=== PATIENT | male | born 1990 | race Caucasian/White ===

== ENCOUNTER 2018-06-25 20:58 | Emergency (ER) | payer OTHER ==
[2018-06-25 21:03] VITALS: BP 117/77; PULSE 76; TEMP 99; BMI 26.1
[2018-06-25] MEDS ORDERED: DEXAMETHASONE LIQUID 0.5 MG/5 ML 240 ML BULK BOTTLE PO ONE (22:36)
[2018-06-25] MEDS ORDERED: DEXAMETHASONE SOD PHOSPHATE 10 MG/1 ML VIAL ONE (22:38)
--- NOTE | 2018-06-25 22:41 | PDOC ---
History of Present Illness - General Chief Complaint: Sore Throat Stated Complaint: Sore Throat/FEVER/RASH Time Seen by Provider: 06/25/18 22:11 History Source: Patient Exam Limitations: No Limitations - History of Present Illness Initial Comments: 06/25/18 22:35 HISTORY OF PRESENT ILLNESS: 27-year-old male without significant medical history presents emergency Department with rash to bilateral hands, bilateral feet and sore throat. Patient states she's been feeling ill with body aches and sore throat for the past 4 days but didn't feel it warranted evaluation. Patient noted rash starting yesterday and had increased pain in the hands and feet which caused him to come to emergency department for evaluation. Patient has been taking Motrin with relief of symptoms until this afternoon. He reports subjective fevers but did not check his temperature. He denies headaches, blurry vision, shortness of breath, cough, nasal congestion, chest pain, abdominal pain, nausea, vomiting. No recent travel or sick contacts. PAST MEDICAL HISTORY: Denies past medical history SURGICAL HISTORY: Denies ALLERGIES: No known drug allergies REVIEW OF SYSTEMS General/Constitutional: Denies fever or chills. Denies weakness, weight change. HEENT: Denies change in vision. Denies ear pain or discharge. Denies sore throat. Cardiovascular: Denies chest pain or shortness of breath. Respiratory: Denies cough, wheezing, or hemoptysis. Gastrointestinal: Denies nausea, vomiting, diarrhea or constipation. Denies rectal bleeding. Genitourinary: Denies dysuria, frequency, or change in urination. Musculoskeletal: Denies joint or muscle swelling or pain. Denies neck or back pain. Skin and breasts: Denies rash or easy bruising. Neurologic: Denies headache, vertigo, loss of consciousness, or loss of sensation. Psychiatric: Denies depression or anxiety. Endocrine: Denies increased thirst. Denies abnormal weight change. Hematologic/Lymphatic: Denies anemia, easy bleeding, or history of blood clots. Allergic/Immunologic: Denies hives or skin allergy. Denies latex allergy. PHYSICAL EXAM General Appearance: Well-appearing, appropriately dressed. No apparent distress , no intoxication. HEENT: EOMI, PERRLA, normal voice, TMs normal. No conjunctival pallor. No photophobia, scleral icterus. Pharyngeal erythema present. No tonsillar erythema noted. Vesicular lesions noted to the soft palate. Neck: Supple. Trachea midline. No tenderness, rigidity, carotid bruit, stridor , lymphadenopathy, or thyromegaly. Respiratory/Chest: Lungs CTAB. No shortness of breath, chest tenderness, respiratory distress, accessory muscle use. No crackles, rales, rhonchi, stridor , wheezing, dullness Cardiovascular: RRR. S1, S2. No JVD, murmur, bradycardia, tachycardia. Vascular Pulses: Dorsalis-Pedis (R): 2+, Dorsalis-Pedis (L): 2+ Gastrointestinal/Abdominal: Normal bowel sounds. Abdomen soft, non-distended. No tenderness or rebound tenderness. No organomegaly, pulsatile mass, guarding, hernia, hepatomegaly, splenomegaly. Lymphatic: No adenopathy, tenderness. Musculoskeletal/Extremities: Normal inspection. FROM of all extremities, normal capillary refill. Pelvis Stable. No CVA tenderness. No tenderness to extremities, pedal edema, swelling, erythema or deformity. Integumentary: Appropriate color, dry, warm. No cyanosis, erythema, jaundice. Scattered vesicular rash noted to dorsum and palmar surfaces of bilateral hands , dorsum and plantar surfaces of bilateral feet. Neurologic: [employer] fuel [employer]er II-XII intact. Fully oriented, alert. Appropriate mood/affect. Motor strength 5/5. No appreciable EOM palsy, facial droop or sensory deficit. Past History - Past Medical History Allergies/Adverse Reactions: Allergies Allergy/AdvReac Type Severity Reaction Status Date / Time No Known Allergies Allergy Verified 06/25/18 21:04 Home Medications: Ambulatory Orders Naproxen Sodium [Aleve] 220 mg PO BID 06/25/18 COPD: No - Suicide/Smoking/Psychosocial Hx Smoking History: Never smoked *Physical Exam - Vital Signs Last Vital Signs Temp Pulse Resp BP Pulse Ox 99 F 76 18 117/77 98 06/25/18 21:01 06/25/18 21:01 06/25/18 21:01 06/25/18 21:01 06/25/18 21:01 Medical Decision Making - Medical Decision Making 06/25/18 22:38 A/P: 27-year-old male without significant medical history with pdfq-bpbl-sav-mouth disease Vesicular rash presents to bilateral hands on dorsum and volar surfaces, bilateral feats worse in the webbing of the toes Vesicular lesions noted to the soft palate. Pharyngeal erythema present Physical exam is consistent with kzfi-dlms-fqq-mouth disease Decadron 10 mg orally now Symptomatic treatment was discussed with the patient and his significant other. This child lives in the house and Ten[employer] prevent the spread of infection have been discussed. Patient's significant other verbalized understanding of discharge instructions. All questions have been answered. *DC/Admit/Observation/Transfer Diagnosis at time of Disposition: Hand, foot and mouth disease - Discharge Dispostion Disposition: HOME Condition at time of disposition: Stable Decision to Admit order: No - Referrals - Patient Instructions Additional Instructions: Rest, drink lots of fluids: Teas, water, soups, Pedialyte Saltwater gargles Steamy showers/seem to face break up mucus Avoid contact with others until fevers and cough resolved Lots of handwashing and good hygiene Continue [id number] medications for symptomatic relief Tylenol or Motrin for fever and pain Followup with private physician in one to 2 days as needed Return to emergency department for worsened symptoms, fevers, dehydration - Post Discharge Activity Forms/Work/School Notes: Back to Work
== END 2018-06-25 22:55 | disposition home or self-care (01) ==
LOC: JERFT 20:58
DX: B08.4 Enteroviral vesicular stomatitis with exanthem (principal); B97.11 Coxsackievirus as the cause of diseases classified elsewhere
CPT/HCPCS: 99281-25